=== PATIENT | male | born 1980 | race Caucasian/White ===

== ENCOUNTER 2023-09-11 05:47 | Emergency (ER) | payer MEDICAID, OTHER ==
[2023-09-11] MEDS ORDERED: Amoxicillin/Clavulanate K 875-125 MG Tab PO ONE (05:48)
[2023-09-11] MEDS: Sodium Chloride 0.9% 10 ML Syringe FLUSH PRN (06:48)
[2023-09-11] MEDS: Ketorolac 30 MG/ML SDV IVPUSH ONE (06:49)
[2023-09-11] MEDS: Ondansetron 4 MG/2 ML SDV IVPUSH ONE (06:50)
[2023-09-11] MEDS: Sodium Chloride 0.9% 1,000 ML IV SCH (06:51)
[2023-09-11 06:56] LABS: BASOPHILS ABSOLUTE AUTO 0.1 x10-3/uL (0.0-0.3); BASOPHILS PERCENT AUTO 0.8 % (0.3-3.8); EOSINOPHILS ABSOLUTE AUTO 0.1 x10-3/uL (0.0-0.6); EOSINOPHILS PERCENT AUTO 1.9 % (0.1-6.8); HEMATOCRIT 42.8 % (38.3-50.1); HEMOGLOBIN 14.5 g/dL (12.9-17.7); LYMPHOCYTES ABSOLUTE AUTO 1.5 x10-3/uL (0.5-4.5); LYMPHOCYTES PERCENT AUTO 20.4 % (15.8-45.3); MEAN CORPUSCULAR HEMOGLOBIN 31.9 pg (27.0-33.3); MEAN CORPUSCULAR HGB CONC 33.8 g/dL (28.7-35.3); MEAN CORPUSCULAR VOLUME 94.4 fL (80.8-98.7); MEAN PLATELET VOLUME 8.9 fL (6.7-11.0); MONOCYTES ABSOLUTE AUTO 0.6 x10-3/uL (0.0-1.2); MONOCYTES PERCENT AUTO 8.3 % (5.5-15.2); NEUTROPHILS ABSOLUTE AUTO 5.1 x10-3/uL (1.7-6.9); NEUTROPHILS PERCENT AUTO 68.6 % (40.3-71.8); PLATELET COUNT,PLT 235 x10(3)uL (117-477); RED BLOOD CELL COUNT 4.53 x10(6)uL (3.90-5.90); RED CELL DISTRIBUTION WIDTH 13.7 % (12.4-15.0); WHITE BLOOD CELL COUNT,WBC 7.4 x10-3/uL (3.2-10.1)
[2023-09-11 07:00] LABS: BLOOD UREA NITROGEN,BUN 17 mg/dL (7-18); BUN/CREATININE RATIO 18.9 (9-20); CALCIUM 8.6 mg/dL (8.6-10.2); CARBON DIOXIDE,CO2 27 mmol/L (21-32); CHLORIDE,CL 107 mmol/L (100-110); CREATININE 0.9 mg/dL (0.70-1.30); EST CRCL DRUG DOSING (CG) 98.45 mL/min; ESTIMATED GFR 109 mL/min (>60); GLUCOSE RANDOM 101 mg/dL (80-116); POTASSIUM,K 3.9 mmol/L (3.5-5.3); SODIUM,NA 141 mmol/L (135-145)
== END 2023-09-11 08:15 | disposition home or self-care (01) ==
LOC: FB.ED 05:47
DX: R59.1 Generalized enlarged lymph nodes (principal); F17.210 Nicotine dependence, cigarettes, uncomplicated; Z88.2 Allergy status to sulfonamides; Z88.8 Allergy status to other drugs, medicaments and biological substances
CPT/HCPCS: 36415; 80048; 85025; 96374; 96375; 99284-25; A9270-GY; J1885; J2405; J3490; J7030